=== PATIENT | female | born 1985 | race Caucasian/White ===

== ENCOUNTER → 2017-10-11 | Outpatient (REF) ==
[~2017-10-11] MED LIST: IBU600 MG PO; PERCOCET 325 MG1 TA2 PO; PRENATAL
[2017-10-11 15:32] LABS: IRON,SERUM 89 ug/dL (35-150)
[2017-10-11 15:38] LABS: TOTAL IRON BINDING CAPACITY 317 ug/dL (265-497)
[2017-10-11 15:45] LABS: C-REACTIVE PROTEIN < 0.5 mg/dL (0.0-0.9)
[2017-10-11 23:12] LABS: THYROXINE (T4)-TOTAL 6.5 ug/dL (5.5-11.0)
== END ==
LOC: ZLAB.WCH 14:35
PROVIDERS: Family Medicine
DX: Z01.89 Encounter for other specified special examinations (principal)